=== PATIENT | female | born 1950 | race Caucasian/White ===

== ENCOUNTER → 2016-08-10 | Outpatient (CLI) | payer MEDICARE ==
[~2016-08-10] MED LIST: ASCO10004 PO; ASPI-650 PO; ASPI325T80 PO; CHOL20002 PO; DOCU-30 PO; ENZY1CAP PO; HYDR25TA6 PO; LEVO25TA2 PO; LEVO50TA PO; MULT-257 PO; OXYC-223 PO; OXYC1TAB8 PO; RUTI1TAB PO
== END | disposition home or self-care (01) ==
LOC: CFH 07:14
PROVIDERS: ATTEND Family Medicine
DX: E04.2 Nontoxic multinodular goiter (principal)
CPT/HCPCS: 76536

== ENCOUNTER → 2016-09-12 | Outpatient (CLI) | payer MEDICARE ==
[~2016-09-12] MED LIST changes: +LIDOCAINE 1%, 20ML ONE
== END | disposition home or self-care (01) ==
LOC: RAD 13:15
PROVIDERS: ATTEND Family Medicine
DX: E04.2 Nontoxic multinodular goiter (principal)
CPT/HCPCS: 76942; 88172; 88173; J3490

== ENCOUNTER → 2019-11-11 | Outpatient (CLI) | payer MEDICARE ==
[~2019-11-11] MED LIST changes: +ASCO100018 PO; -ASCO10004 PO; -CHOL20002 PO; +CHOL200052 PO; +DOCU-131 PO; -DOCU-30 PO; -LIDOCAINE 1%, 20ML ONE; -OXYC-223 PO; +OXYC-306 PO
== END | disposition home or self-care (01) ==
LOC: STAR 14:53
PROVIDERS: ATTEND Surgery
DX: Z01.818 Encounter for other preprocedural examination (principal); R94.31 Abnormal electrocardiogram [ECG] [EKG]
CPT/HCPCS: 36415; 84432; 86800; 93005

== ENCOUNTER → 2019-11-19 | Outpatient (CLI) | payer MEDICARE | END | disposition home or self-care (01) | LOC: STAR 14:05 | PROVIDERS: ATTEND Anesthesiology | DX: Z01.812 Encounter for preprocedural laboratory examination (principal); Z20.828 Contact with and (suspected) exposure to other viral communicable diseases | CPT/HCPCS: 36415; 87635 ==

== ENCOUNTER 2019-11-23 05:58 | Inpatient (IN) | payer MEDICARE ==
[~2019-11-23] VITALS: Ht 165.1 cm; Wt 102.4 kg
[2019-11-23] MEDS ORDERED: CHLORHEXIDINE 15 ML UDC MM ONE (07:00)
[2019-11-23] MEDS ORDERED: LIDOCAINE-MPF 1%, 2ML INFIL ONE (07:00)
[2019-11-23] MEDS: LACTATED RINGERS 1,000 ML IV SCH ×3 (07:03→20:51)
[2019-11-23] MEDS ORDERED: FENTANYL PF 250 MCG/5ML ONE (07:18)
[2019-11-23] MEDS ORDERED: MIDAZOLAM 1 MG/ML, 2ML ONE (07:18)
[2019-11-23] MEDS ORDERED: PROPOFOL 10 MG/ML, 20ML ONE (07:53)
[2019-11-23] MEDS ORDERED: GLYCOPYRROLATE 0.2MG/1ML, 5ML ONE (07:53)
[2019-11-23] MEDS ORDERED: NEOSTIGMINE 1 MG/ML, 10ML ONE (07:53)
[2019-11-23] MEDS ORDERED: ROCURONIUM 10 MG/ML,10ML ONE (07:53)
[2019-11-23] MEDS ORDERED: DEXAMETHASONE 4 MG/ML, 1ML ONE (07:53)
[2019-11-23] MEDS ORDERED: SUCCINYLCHOLINE 20 MG/ML, 10ML ONE (07:53)
[2019-11-23] MEDS ORDERED: ONDANSETRON 2MG/ML, 2ML ONE (07:53)
[2019-11-23] MEDS ORDERED: CEFAZOLIN 1,000 MG ONE (07:53)
[2019-11-23] MEDS ORDERED: ONDANSETRON 2MG/ML, 2ML IVPush PRN (08:00)
[2019-11-23] MEDS ORDERED: OXYcodone 5 MG/5 ML ORAL.SOL UDC PO PRN (08:00)
[2019-11-23] MEDS ORDERED: ACETAMINOPHEN 325 MG TABLET PO PRN (08:00)
[2019-11-23] MEDS ORDERED: PROMETHAZINE 25 MG/ML, 1ML IVPush PRN (08:00)
[2019-11-23] MEDS ORDERED: HYDROmorphone 1 MG/ML, 1ML INJ IVPush PRN (08:00)
[2019-11-23] MEDS ORDERED: PROMETHAZINE 25 MG SUPP PR PRN (08:00)
[2019-11-23] MEDS ORDERED: hydrALAzine 20 MG/ML, 1ML IV PRN (08:00)
[2019-11-23] MEDS ORDERED: FENTANYL PF 100 MCG/2ML ONE ×2 (08:41→09:07)
[2019-11-23] MEDS: FENTANYL PF 100 MCG/2ML IV PRN ×3 (08:42→09:10)
[2019-11-23] MEDS ORDERED: LABETALOL 5MG/ML, 20ML ONE (08:53)
[2019-11-23] MEDS: LABETALOL 5MG/ML, 20ML IV PRN ×3 (08:54→09:13)
[2019-11-23] MEDS ORDERED: ACETAMINOPHEN 650 MG/20.3 ML UDC ONE (08:56)
[2019-11-23] MEDS ORDERED: OXYcodone 5 MG/5 ML ORAL.SOL UDC ONE (08:56)
[2019-11-23 10:10] VITALS: BP 155/87
[2019-11-23] MEDS ORDERED: hydrALAzine 20 MG/ML, 1ML ONE (10:24)
[2019-11-23] MEDS ORDERED: ONDANSETRON 2MG/ML, 2ML IV PRN (10:30)
[2019-11-23] MEDS ORDERED: morphine SULFATE 10 MG/ML, 1ML IV PRN (10:30)
[2019-11-23 14:00] VITALS: BP 122/78
[2019-11-23] MEDS: HYDROcodone/APAP 5/325 TABLET PO PRN ×2 (16:44→20:51)
[2019-11-23 18:12] LABS: ALBUMIN 3.4 g/dL (3.4-5.0); CALCIUM 8.5 mg/dL (8.5-10.1)
[2019-11-23 19:21] VITALS: BP 113/75
[2019-11-23] MEDS: SODIUM CHLORIDE FLUSH 10ML SYR IVF SCH (20:50)
[2019-11-23 23:51] VITALS: BP 109/70
[2019-11-24 01:03] LABS: ALBUMIN 3.1 g/dL (3.4-5.0); CALCIUM 8.8 mg/dL (8.5-10.1)
[2019-11-24] MEDS: HYDROcodone/APAP 5/325 TABLET PO PRN ×2 (01:03→06:36)
[2019-11-24 04:34] VITALS: BP 111/75
[2019-11-24] MEDS ORDERED: LEVOTHYROXINE 125 MCG TABLET PO SCH (06:00)
[2019-11-24 06:31] LABS: ALBUMIN 3.1 g/dL (3.4-5.0); CALCIUM 8.5 mg/dL (8.5-10.1)
[2019-11-24 07:19] VITALS: BP 142/82
[2019-11-24] MEDS: SODIUM CHLORIDE FLUSH 10ML SYR IVF SCH (09:00)
[2019-11-24] MEDS: LACTATED RINGERS 1,000 ML IV SCH (09:20)
== END 2019-11-24 09:50 | disposition home or self-care (01) | DRG 627 ==
LOC: OUT 05:58 → 4NE 10:03 → OUT 11:01 → DCLOUNGE 11-24 09:38
PROVIDERS: ADMIT Surgery; ATTEND Surgery
PROC: 0GTK0ZZ Resection of Thyroid Gland, Open Approach (ICD-10-PCS; principal; 2019-11-23 07:30)
DX: C73 Malignant neoplasm of thyroid gland (principal)
CPT/HCPCS: 36415; 82040; 82310; 88307; G0378; J0690; J1100; J2250; J2405; J2704; J2710; J3010; C1760; J0330; J0360; J2270; J7120

== ENCOUNTER → 2019-12-17 | Outpatient (CLI) | payer MEDICARE | END | disposition home or self-care (01) | LOC: CFH 15:50 | PROVIDERS: ATTEND Family Medicine | DX: Z12.31 Encounter for screening mammogram for malignant neoplasm of breast (principal) | CPT/HCPCS: 77067 ==